=== PATIENT | female | born 2005 | race Caucasian/White ===

== ENCOUNTER 2025-05-28 09:51 | Emergency (ER) | payer OTHER ==
[~2025-05-28] VITALS: Ht 172.7 cm; Wt 67.1 kg
[2025-05-28 10:55] LABS: HCG, SERUM QUALITATIVE NEGATIVE (NEGATIVE)
[2025-05-28 13:27] VITALS: BP 119/71; TEMP 97.8; O2SAT 100
== END 2025-05-28 13:30 | disposition home or self-care (01) ==
LOC: M ED 09:51
DX: S20.20XA Contusion of thorax, unspecified, initial encounter (principal); X50.0XXA Overexertion from strenuous movement or load, initial encounter; Y92.9 Unspecified place or not applicable; Y93.89 Activity, other specified; Y99.9 Unspecified external cause status